=== PATIENT | male | born 2000 ===

== ENCOUNTER → 2025-04-25 09:00 | Outpatient (BNV) | payer OTHER, SELFPAY | PROVIDERS: Visit Provider Internal Medicine | DX: R00.0 Tachycardia, unspecified (principal) | CPT/HCPCS: 93244 ==

== ENCOUNTER → 2025-04-25 14:30 | Outpatient (REF) | payer OTHER, SELFPAY ==
--- NOTE | 2025-04-25 09:00 | HM_ITS ---
* Total monitoring time 3 days. * Underlying rhythm is sinus with an average rate of 74/Min. * No significant supraventricular or ventricular ectopy. * No significant tachyarrhythmias. * No significant pauses or high-grade AV blocks. * Patient markers correlate with sinus rhythm and sinus tachycardia. * Palpitations, skipped beats in patient diary correlate with sinus rhythm and sinus tachycardia. Nausea correlates with sinus rhythm. MTDD
== END ==
LOC: HO.CARD 14:30
PROVIDERS: Visit Provider Physician Assistant Medical
DX: R53.1 Weakness (principal)
CPT/HCPCS: 93242